=== PATIENT | female | born 1940 | race Caucasian/White ===

== ENCOUNTER → 2016-09-04 | Outpatient (CLI) | payer OTHER ==
[~2016-09-04] MED LIST: ALEVE220 MG PO; AMIODARONE 50 MG/ML PO; ASPI PO; CLARITIN10 MG PO; EVISTA60 MG PO; FISH OIL1 POW PO; GOOD NEIGHBOR325 MG PO; HCTZ/LISINOPRIL1 TA2 PO; LASIX20 MG PO; LOW DOSE ASPIRI81 MG PO; METOPROLOL SUC200 M1 PO; MULTIPLE VITAMI1 CAP PO; NEXIUM 40MG40 MG PO; NIACIN1 POW PO; VITAMIN D32000 I1 PO; ZESTRIL 20MG TA20 MG PO; [UNRECOGNIZED DRUG - OTHER] PO
== END ==
LOC: LAB 09:46
DX: E87.1 Hypo-osmolality and hyponatremia (principal)

== ENCOUNTER → 2017-03-07 | Outpatient (CLI) | payer MEDICARE, OTHER ==
[2013-08-10 14:36] VITALS: BP 178/97
== END ==
LOC: LAB 09:09
DX: E87.1 Hypo-osmolality and hyponatremia (principal)

== ENCOUNTER → 2017-06-15 | Outpatient (CLI) | payer MEDICARE ==
[2013-08-10 14:36] VITALS: BP 178/97
[2017-06-15 09:24] LABS: ALBUMIN 4.1 g/dL (3.5-5.0); BUN/CREATININE RATIO 24.2 (6.0-26.0); CALCIUM 9.4 mg/dL (8.4-10.2); TOTAL BILIRUBIN 0.9 mg/dL (0.2-1.3); TOTAL PROTEIN 7.4 g/dL (6.3-8.2)
== END ==
LOC: LAB 08:54
PROVIDERS: Family Medicine
DX: I10 Essential (primary) hypertension (principal); E78.5 Hyperlipidemia, unspecified; E87.6 Hypokalemia

== ENCOUNTER → 2017-09-12 | Outpatient (CLI) | payer MEDICARE ==
[2013-08-10 14:36] VITALS: BP 178/97
[2017-09-12 13:27] LABS: BUN/CREATININE RATIO 17.7 (6.0-26.0); CALCIUM 9.1 mg/dL (8.4-10.2); POTASSIUM 3.7 mmol/L (3.6-5.0)
== END ==
LOC: LAB 07:55
PROVIDERS: Internal Medicine
DX: E87.1 Hypo-osmolality and hyponatremia (principal)

== ENCOUNTER → 2017-09-14 | Outpatient (CLI) | payer MEDICARE ==
[2013-08-10 14:36] VITALS: BP 178/97
== END ==
LOC: RAD 14:31
DX: M79.89 Other specified soft tissue disorders (principal); M19.071 Primary osteoarthritis, right ankle and foot

== ENCOUNTER 2017-09-26 15:18 | Observation (INO) | payer MEDICARE ==
[~2017-09-26] VITALS: Ht 149.9 cm; Wt 73.0 kg
[2017-09-26] MEDS ORDERED: ASPIRIN E.C. 8181 MG PO (15:33)
[2017-09-26] MEDS ORDERED: ELIQUIS5 MG PO (15:36)
[2017-09-26] MEDS ORDERED: POTASSIUM CHLO10 ME7 PO (15:37)
[2017-09-26] MEDS ORDERED: ACETAMINOPHEN-H1 TA2 PO (15:38)
[2017-09-26 16:33] LABS: EOS # 0.1 (0.04-0.40); EOS % 1.2 % (1.0-5.0); HEMATOCRIT 43.4 % (37.0-47.0); HEMOGLOBIN 13.8 g/dL (12.5-16.0); LYMPH# 1.3 (1.50-4.00); MEAN CELL VOLUME 95 fl (78-100); MEAN CORPUSCULAR HEMOGLOBIN 30 pg (27-31); MEAN CORPUSCULAR HGB CONC 32 g/dL (33-37); MEAN PLATELET VOLUME 9.6 fl (7.4-10.4); MONO # 0.9 (0.20-0.80); NEU # 6.9 (1.40-6.50); PLATELET COUNT 241 K/mm3 (130-400); RED BLOOD COUNT 4.55 M/mm3 (4.10-5.30); RED CELL DISTRIBUTION WIDTH 13.6 % (11.5-14.5); WHITE BLOOD COUNT 9.3 K/mm3 (4.8-10.8)
[2017-09-26 16:39] LABS: ALBUMIN 4.4 g/dL (3.5-5.0); BUN/CREATININE RATIO 18.9 (6.0-26.0); CALCIUM 9.4 mg/dL (8.4-10.2); POTASSIUM 3.7 mmol/L (3.6-5.0); TOTAL BILIRUBIN 0.5 mg/dL (0.2-1.3); TOTAL PROTEIN 7.9 g/dL (6.3-8.2)
[2017-09-26 16:51] LABS: CKMB ISOENZYME 3.5 ng/mL (0.6-3.5)
[2017-09-26 16:54] LABS: TROPONIN-I < 0.03 ng/mL (0.00-0.06)
[2017-09-26] MEDS ORDERED: FUROSEMIDE20 MG PO (16:55)
[2017-09-26 17:11] LABS: URINE COLOR YELLOW
[2017-09-26 17:12] LABS: PH-URINE 5.5 (5.0 - 8.0); URINE APPEARANCE HAZY; URINE BILIRUBIN NEGATIVE (NEGATIVE); URINE BLOOD NEGATIVE (NEGATIVE); URINE GLUCOSE NEGATIVE (NEGATIVE); URINE KETONE NEGATIVE (NEGATIVE); URINE LEUKOCYTE ESTERASE TRACE (NEGATIVE); URINE NITRATE NEGATIVE (NEGATIVE); URINE PROTEIN(semi-quant) TRACE mg/dL (NEGATIVE); URINE UROBILINOGEN NORMAL (NORMAL)
[2017-09-26 18:46] VITALS: BP 154/83
[2017-09-26 19:15] VITALS: BP 154/83
[2017-09-26 23:57] VITALS: BP 127/88
[2017-09-27 03:55] VITALS: BP 167/80
[2017-09-27 06:43] VITALS: BP 152/88
[2017-09-27] MEDS ORDERED: METOPROLOL SUC100 M1 PO (09:27)
[2017-09-27] MEDS ORDERED: LISINOPRIL20 MG PO (09:28)
[2017-09-27 11:30] VITALS: BP 151/87
[2017-09-27 15:30] VITALS: BP 133/82
[2017-09-27 18:34] VITALS: BP 155/78
[2017-09-27 23:43] VITALS: BP 146/85
[2017-09-28 02:39] VITALS: BP 151/84
[2017-09-28 05:45] LABS: EOS # 0.3 (0.04-0.40); EOS % 3.5 % (1.0-5.0); HEMATOCRIT 38.2 % (37.0-47.0); HEMOGLOBIN 12.2 g/dL (12.5-16.0); LYMPH# 1.4 (1.50-4.00); MEAN CELL VOLUME 97 fl (78-100); MEAN CORPUSCULAR HEMOGLOBIN 31 pg (27-31); MEAN CORPUSCULAR HGB CONC 32 g/dL (33-37); MEAN PLATELET VOLUME 9.2 fl (7.4-10.4); MONO # 0.9 (0.20-0.80); NEU # 6.3 (1.40-6.50); PLATELET COUNT 222 K/mm3 (130-400); RED BLOOD COUNT 3.96 M/mm3 (4.10-5.30); RED CELL DISTRIBUTION WIDTH 13.8 % (11.5-14.5); WHITE BLOOD COUNT 8.9 K/mm3 (4.8-10.8)
[2017-09-28 05:59] LABS: ALBUMIN 3.7 g/dL (3.5-5.0); BUN/CREATININE RATIO 18.6 (6.0-26.0); CALCIUM 8.5 mg/dL (8.4-10.2); POTASSIUM 3.5 mmol/L (3.6-5.0); TOTAL BILIRUBIN 0.7 mg/dL (0.2-1.3); TOTAL PROTEIN 6.8 g/dL (6.3-8.2)
[2017-09-28 06:23] VITALS: BP 164/82
[2017-09-28 11:26] VITALS: BP 148/78
[2017-09-28] MEDS ORDERED: ELIQUIS2.5 MG PO (13:39)
== END 2017-09-28 14:05 | disposition home health service (06) ==
LOC: ED 15:18 → MED/SURG 18:01
PROVIDERS: Nurse Practitioner; ADMIT Nurse Practitioner Primary Care
DX: R53.1 Weakness (principal); S62.357A Nondisplaced fracture of shaft of fifth metacarpal bone, left hand, initial encounter for closed fracture; R29.6 Repeated falls; Z91.81 History of falling; W19.XXXA Unspecified fall, initial encounter; Y92.009 Unspecified place in unspecified non-institutional (private) residence as the place of occurrence of the external cause; S00.12XA Contusion of left eyelid and periocular area, initial encounter; S00.11XA Contusion of right eyelid and periocular area, initial encounter; S50.02XA Contusion of left elbow, initial encounter; M25.552 Pain in left hip; Z79.82 Long term (current) use of aspirin; Z79.01 Long term (current) use of anticoagulants; Z88.8 Allergy status to other drugs, medicaments and biological substances; I48.91 Unspecified atrial fibrillation; I11.0 Hypertensive heart disease with heart failure; I50.9 Heart failure, unspecified; F32.9 Major depressive disorder, single episode, unspecified; K21.9 Gastro-esophageal reflux disease without esophagitis; M41.9 Scoliosis, unspecified; Z96.651 Presence of right artificial knee joint; M54.2 Cervicalgia; M54.9 Dorsalgia, unspecified
CPT/HCPCS: A9585; G0378; G8978-GP; G8979-GP; J1940; J2060; J7030

== ENCOUNTER → 2017-10-05 | Outpatient (CLI) | payer MEDICARE ==
[2017-09-28 11:26] VITALS: BP 148/78
[~2017-10-05] MED LIST changes: +ACETAMINOPHEN-H1 TA2 PO; +ASPIRIN E.C. 8181 MG PO; +ELIQUIS2.5 MG PO; +ELIQUIS5 MG PO; +FUROSEMIDE20 MG PO; +LISINOPRIL20 MG PO; +METOPROLOL SUC100 M1 PO; +POTASSIUM CHLO10 ME7 PO
[2017-10-05 17:16] LABS: POTASSIUM 3.7 mmol/L (3.6-5.0)
== END ==
LOC: LAB 15:41
PROVIDERS: Family Medicine
DX: G47.00 Insomnia, unspecified (principal); R29.898 Other symptoms and signs involving the musculoskeletal system; R60.0 Localized edema; I10 Essential (primary) hypertension

== ENCOUNTER → 2017-10-26 | Outpatient (CLI) | payer MEDICARE ==
[2017-09-28 11:26] VITALS: BP 148/78
== END ==
LOC: RAD 15:54
DX: S62.307A Unspecified fracture of fifth metacarpal bone, left hand, initial encounter for closed fracture (principal); I10 Essential (primary) hypertension; G47.00 Insomnia, unspecified; R53.1 Weakness; Z88.8 Allergy status to other drugs, medicaments and biological substances

== ENCOUNTER → 2017-11-03 | Outpatient (CLI) | payer MEDICARE ==
[2017-11-03 07:34] LABS: BUN/CREATININE RATIO 22.2 (6.0-26.0); CALCIUM 9.2 mg/dL (8.4-10.2); POTASSIUM 3.8 mmol/L (3.6-5.0)
== END ==
LOC: LAB 06:57
PROVIDERS: Internal Medicine
DX: E87.1 Hypo-osmolality and hyponatremia (principal); I15.8 Other secondary hypertension

== ENCOUNTER 2018-02-24 14:00 | Outpatient (RCR) | payer MEDICARE | END 2018-04-18 | disposition home or self-care (01) | LOC: PT | DX: R29.6 Repeated falls (principal); Z96.651 Presence of right artificial knee joint | CPT/HCPCS: G8978-GP; G8979-GP ==